=== PATIENT | male | born 1960 | race Two or more races ===

== ENCOUNTER 2024-11-10 12:06 | Inpatient (IN) | payer MEDICARE, OTHER ==
[~2024-11-10] VITALS: Ht 162.6 cm; Wt 81.4 kg
--- NOTE | 2024-11-10 13:15 | ED.PDOC ---
History of Present Illness HPI Comments This is a 64-year-old male who comes in with chief complaint of right flank pain secondary to shingles. The patient states that he was diagnosed with shingles a few weeks ago. The patient states that he was given medications for the pain and the shingles. The patient states that after taking Valtrex his body started shaking significantly. At this time he states that the rash is gone now but the patient was having increased amount of pain. There has been no nausea, vomiting or diarrhea. Chief Complaint: Rash Time Seen by MD: 12:51 Reviewed Notes: Nurses Notes, Medications, Allergies (NKDA) Allergies: Coded Allergies: NO KNOWN ALLERGIES (Unverified , 11/10/24) Information Source: Patient Mode of Arrival: Ambulatory Severity: Moderate Timing: Days Duration: Since onset Prehospital treatment: None Location: Right flank pain with no sign of significant rash Past Medical History PAST MEDICAL HISTORY: CKF, CVA, DM, HTN Surgical History (Other): Left arm fistula Family History Family History: Family hx of DM Social History Smoker: Non-Smoker Alcohol: Denies ETOH Use Drugs: Denies Drug Use Lives In: Home Constitutional: denies: chills, diaphoresis, fatigue, fever, malaise, sweats, weakness, others EENTM: denies: blurred vision, double vision, ear bleeding, ear discharge, ear drainage, ear pain, ear ringing, eye pain, eye redness, hearing loss, mouth pain, mouth swelling, nasal discharge, nose bleeding, nose congestion, nose pain, photophobia, tearing, throat pain, throat swelling, voice changes, others Respiratory: denies: cough, hemoptysis, orthopnea, SOB at rest, shortness of breath, SOB with excertion, stridor, wheezing, others Cardiovascular: denies: chest pain, dizzy spells, diaphoresis, Dyspnea on exertion, edema, irregular heart beat, left arm pain, lightheadedness, palpitations, PND, syncope, others Gastrointestinal: denies: abdomen distended, abdominal pain, blood streaked bowels, constipated, diarrhea, dysphagia, difficulty swallowing, hematemesis, melena, nausea, poor appetite, poor fluid intake, rectal bleeding, rectal pain, vomiting, others Genitourinary: denies: burning, dysuria, flank pain, frequency, hematuria, incontinence, penile discharge, penile sore, pain, testicle pain, testicle swelling, urgency, others Neurological: denies: dizziness, fainting, headache, left sided numbness, left sided weakness, numbness, paresthesia, pre-existing deficit, right sided numbness, right sided weakness, seizure, speech problems, tingling, tremors, weakness, others Musculoskeletal: reports: others (Left arm with a fistula in place); denies: back pain, gout, joint pain, joint swelling, muscle pain, muscle stiffness, neck pain Integumetry: reports: others (There is some mild redness to the right flank area); denies: bruises, change in color, change in hair/nails, dryness, laceration, lesions, lumps, rash, wounds Allergic/Immunocompromised: denies: Difficulty Healing, Frequent Infections, Hives, Itching, others Hematologic/Lymphatic: denies: anemia, blood clots, easy bleeding, easy bruising, swollen glands, others Endocrine: denies: excessive hunger, excessive sweating, excessive thirst, excessive urination, flushing, intolerance to cold, intolerance to heat, unexplained weight gain, unexplained weight loss, others Psychiatric: denies: anxiety, bipolar disorder, depression, hopeless, panic disorder, schizophrenia, sleepless, suicidal, others Physical Exam General Appearance: Mild Distress HEENT: Normal ENT Inspection, Pharynx Normal, TMs Normal Neck: Full Range of Motion, Non-Tender, Normal, Normal Inspection Respiratory: Chest Non-Tender, Lungs Clear, No Accessory Muscle Use, No Respiratory Distress, Normal Breath Sounds Cardiovascular: No Edema, No JVD, No Murmur, No Gallop, Normal Peripheral Pu lses, Regular Rate/Rhythm Breast Exam: Deferred Gastrointestinal: No Organomegaly, Non Tender, No Pulsatile Mass, Normal Bowel Sounds, Soft Genitalia: Deferred Pelvic: Deferred Rectal: Deferred Extremities: No calf tenderness, Normal capillary refill, No pedal edema, Other (Fistula to the left upper extremity without any redness or tenderness) Musculoskeletal : Apperance: Normal Neurologic: Alert, 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 Was a procedure done?: No Differential Dx Considerations may include: Shingles, intractable pain X-Ray, Labs, Meds, VS Vital Signs Date Time Temp Pulse Resp B/P (MAP) Pulse Ox O2 Delivery O2 Flow Rate FiO2 11/10/24 12:40 98.7 104 20 220/90 (133) 96 98.7 At this time, the patient was being discharged The patient will follow up with the primary care doctor The patient was given a prescription of Normanna The patient was somewhat hypertensive so was given clonidine The patient will return to the emergency department's the condition worsens. Time of 1ST Reevaluation: 13:13 Reevaluation 1ST: Improved Patient Education/Counseling: Diagnosis, Treatment, Prognosis, Need For Follow Up Family Education/Counseling: No Family Present Departure 1 Departure Time of Disposition: 13:14 Impression: Primary Impression: Shingles Qualified Codes: B02.9 - Zoster without complications Additional Impressions: Total body pain Hypertensive urgency Disposition: 01 HOME / SELF CARE / HOMELESS Condition: Fair Discharged With: Self Critical Care Note Critical Care Time?: No Stability Stability form required: No Heart Score Heart Score: Heart Score Response (Comments) Value History N/A 0 EKG N/A 0 Age N/A 0 Risk Factors N/A 0 Troponin N/A 0 Total 0 ROSARIO GOOD MD Nov 10, 2024 13:15
[2024-11-10] MEDS: cloNIDine HCL 0.1 MG TAB PO ONE (13:19)
[2024-11-10] MEDS: HYDROcodone-ACET 5/325MG TAB PO ONE (13:19)
[2024-11-10 16:09] VITALS: RESP 18; O2SAT 98
[2024-11-10] MEDS: hydrALAZINE HCL 20 MG/ML VL IV ONE (16:25)
[2024-11-10 16:40] LABS: Basophils # (auto) 0.1 10 ^3/uL (0-0.2); Basophils % (auto) 0.9 % (0.0-2.0); Eosinophils # (auto) 0.1 10 ^3/uL (0-0.8); Eosinophils % (auto) 0.9 % (0.0-7.0); Hematocrit 34.4 % (41.0-53.0); Hemoglobin 11.4 g/dL (13.5-17.5); Lymphocytes # (auto) 1.4 10 ^3/uL (0.4-5.4); Lymphocytes % (auto) 19.7 % (10.0-50.0); Mean Corpuscular Hemoglobin 29.9 pg (28.0-32.0); Mean Corpuscular Hgb Conc. 33.3 g/dL (32.0-36.0); Mean Corpuscular Volume 89.8 fL (80.0-100.0); Monocytes # (auto) 0.5 10 ^3/uL (0-1.3); Monocytes % (auto) 6.5 % (0.0-12.0); Neutrophils # (auto) 5.2 10 ^3/uL (1.6-8.6); Nucleated Red Blood Cells % 0.1 %; Platelet Count (auto) 322 10^3/uL (140-450); Red Blood Cells 3.83 10^6/uL (4.5-5.90); Red Cell Distribution Width 16.1 % (11.8-14.3); White Blood Cell 7.2 10^3/uL (4.4-10.8)
[2024-11-10 16:55] LABS: Potassium 4.8 mmol/L (3.5-5.1)
[2024-11-10 16:56] LABS: Anion Gap 12 (5-15); Calcium 9.3 mg/dL (8.7-10.4); Carbon Dioxide 29 mmol/L (20-31)
--- NOTE | 2024-11-10 16:58 | DVHHP2 ---
History of Present Illness Reason for Visit: Right flank pain History of Present Illness 64-year-old male past medical history CKD on dialysis Saturdays with Dr. Sierra at [facility] had dialysis today, CVA, diabetes, hypertension, left arm fistula chief complaint she was recently he knows with shingles three weeks ago. It appears he was prescribed gabapentin but he has not started the medication. He also had acyclovir which he had a bad reaction to. Patient states despite this he has been having severe right flank pain that radiates to his hip. He states the pain was so severe so he came to the ED for evaluation he did get dialysis today and he has a full session of the dialysis but he has not taken his home blood pressure meds. Was found to have a blood pressure 224/112. Patient denies any fever no chest pain no shortness with the breath he denies any drainage coming from his rash wounds on his hip. States the rash is improving but he just has a numbness and tingling pain. Evaluating patient's labs and imaging see was unremarkable he was given hydralazine clonidine and Todd in the ED. we will admit for hypertension urgency and also pain management Past Medical History CKD on dialysis Saturdays had session today, CVA, diabetes, hypertension, left arm fistula Past Surgical History Left arm fistula Family History Reviewed, non-contributory to the management of this case. Past Social History The patient lives at home, denies smoking, alcohol or illicit drugs abuse. Review of Systems Constitutional: No: Fever, Chills, Sweats, Weakness, Malaise, Other Eyes: No: Pain, Vision change, Conjunctivae inflammation, Eyelid inflammation, Other, Redness ENT: No: Ear pain, Ear discharge, Nose pain, Nose discharge, Nose congestion, Mouth pain, Mouth swelling, Throat pain, Throat swelling, Other Respiratory: No: Cough, Dry, Shortness of breath, SOB with excertion, Wheezing, Hemoptysis, Pleuritic Pain, Sputum, Wheezing, Other Cardiovascular: No: Chest Pain, Palpitations, Orthopnea, Paroxysmal Noc. Dyspnea, Edema, Lt Headedness, Other Gastrointestinal: No: Nausea, Vomiting, Abdominal Pain, Diarrhea, Constipation, Melena, Hematochezia, Other Genitourinary: No Dysuria, No Frequency, No Incontinence, No Hematuria, No Retention, No Other Musculoskeletal: No: other, neck pain, shoulder pain, arm pain, back pain, hand pain, leg pain, foot pain Skin: Rash, Lesions, Other (Pain); No: Jaundice, Bruising Neurological: No: Weakness, Numbness, Incoordination, Change in speech, Confusion, Seizures, Other Allergies: Coded Allergies: NO KNOWN ALLERGIES (Unverified , 11/10/24) Exam Vital Signs Vital Signs Date Time Temp Pulse Resp B/P (MAP) Pulse Ox O2 Delivery O2 Flow Rate FiO2 11/10/24 16:25 224/112 11/10/24 16:11 98.1 16 82 96 98.1 11/10/24 16:09 Room Air* 0 21 General Appearance: Alert, Oriented X3, Cooperative, No acute distress HEENT: Atraumatic, PERRLA, EOMI, Mucous membr. moist/pink Respiratory: Clear to auscultation, Normal air movement Cardiovascular: Regular rate, Normal S1, Normal S2, No murmurs Abdominal: Normal bowel sounds, Soft, No tenderness, No hepatospenomegaly, No masses Extremities: No clubbing, No cyanosis, No edema, Normal pulses, No tenderness/swelling Skin: No breakdown, No significant lesion (right Hip rash radiating to upper thighs scabbed over no erythema no drainage compartments soft neurovascular in tact no necrosis) Neuro: Normal gait, Normal speech, Strength at 5/5 X4 ext, Normal tone, Sensation intact, Cranial nerves 3-12 NL Psych/Mental Status: Mental status NL, Mood NL Labs/Xrays I reviewed labs, imaging CT scan abdomen pelvis, EKG and all diagnostic studies on this patient from ED records and the medical chart Labs Test 11/10/24 16:27 Range/Units White Blood Count 7.2 4.4-10.8 10^3/uL Red Blood Count 3.83 L 4.5-5.90 10^6/uL Hemoglobin 11.4 L 13.5-17.5 g/dL Hematocrit 34.4 L 41.0-53.0 % Mean Corpuscular Volume 89.8 80.0-100.0 fL Mean Corpuscular Hemoglobin 29.9 28.0-32.0 pg Mean Corpuscular Hemoglobin Concent 33.3 32.0-36.0 g/dL Red Cell Distribution Width 16.1 H 11.8-14.3 % Platelet Count 322 140-450 10^3/uL Mean Platelet Volume 7.3 6.9-10.8 fL Neutrophils (%) (Auto) 72.0 37.0-80.0 % Lymphocytes (%) (Auto) 19.7 10.0-50.0 % Monocytes (%) (Auto) 6.5 0.0-12.0 % Eosinophils (%) (Auto) 0.9 0.0-7.0 % Basophils (%) (Auto) 0.9 0.0-2.0 % Neutrophils # (Auto) 5.2 1.6-8.6 10 ^3/uL Lymphocytes # (Auto) 1.4 0.4-5.4 10 ^3/uL Monocytes # (Auto) 0.5 0-1.3 10 ^3/uL Eosinophils # (Auto) 0.1 0-0.8 10 ^3/uL Basophils # (Auto) 0.1 0-0.2 10 ^3/uL Nucleated Red Blood Cells 0.1 % Assessment/Plan Assessment/Plan acute hypertension emergency likely from missed dose versus increased pain ordered hydralazine prn cont home medication we will take home dose Acute intractable right flank pain likely from shingles ordered morphine as needed for pain ordered gabapentin tid ordered tramadol bid ordered lidocaine cream prn chronic problems ckd on HD does have davita had full hd today, goes tujason, thurs sat cva dm htn uncontrolled left arm fistula fen/ppx diet hl scd no gi ppx since no hx of gerds or gi bleed plan admit to tele pressure management Plan discussed with: Patient, Spouse Date of Service: Nov 10, 2024 Billing Provider: BELKIS WEST DNP Common Visit Codes: [id number] INP/OBS CARE (HIGH) BELKIS WEST DNP Nov 10, 2024 16:58
[2024-11-10 17:01] LABS: BUN/Creatinine Ratio 4.7 (10.0-20.0)
[2024-11-10 17:03] LABS: Blood Urea Nitrogen 33 mg/dL (9-23); Chloride 93 mmol/L (98-107); Glucose 185 mg/dL (74-106); Sodium 134 mmol/L (136-145)
[2024-11-10] MEDS ORDERED: DOCUSATE SOD 100 MG CAP PO PRN (18:30)
[2024-11-10] MEDS ORDERED: MORPHINE SULFATE INJ 2 MG/ml SYRG IV PRN (18:30)
[2024-11-10] MEDS ORDERED: ONDANSETRON HCL 4 MG/2 ML VIAL IV PRN (18:30)
[2024-11-10] MEDS ORDERED: NITROGLYCERIN 0.4 MG SL TAB SL PRN (18:30)
[2024-11-10] MEDS ORDERED: LIDOCAINE HCL 5 % TOP OINT 35 GM TOP PRN (18:30)
[2024-11-10] MEDS: hydrALAZINE HCL 20 MG/ML VL IV PRN (21:59)
[2024-11-10] MEDS: GABAPENTIN 100 MG CAP PO SCH (22:45)
[2024-11-11] MEDS ORDERED: CLON0.1T PO (04:22)
[2024-11-11] MEDS ORDERED: GLIM4TAB42 PO (04:22)
[2024-11-11] MEDS ORDERED: NIFE1TAB36 PO (04:22)
[2024-11-11] MEDS ORDERED: VALA500T33 PO (04:22)
[2024-11-11] MEDS ORDERED: LOSA-535 PO (04:22)
[2024-11-11 05:12] LABS: Basophils # (auto) 0.1 10 ^3/uL (0-0.2); Basophils % (auto) 0.9 % (0.0-2.0); Eosinophils # (auto) 0 10 ^3/uL (0-0.8); Eosinophils % (auto) 0.6 % (0.0-7.0); Hematocrit 30.7 % (41.0-53.0); Hemoglobin 10.8 g/dL (13.5-17.5); Lymphocytes # (auto) 1.8 10 ^3/uL (0.4-5.4); Mean Corpuscular Hemoglobin 30.9 pg (28.0-32.0); Mean Corpuscular Hgb Conc. 35.1 g/dL (32.0-36.0); Monocytes # (auto) 0.6 10 ^3/uL (0-1.3); Monocytes % (auto) 8.2 % (0.0-12.0); Neutrophils # (auto) 5.1 10 ^3/uL (1.6-8.6); Neutrophils % (auto) 66.3 % (37.0-80.0); Nucleated Red Blood Cells % 0.2 %; Platelet Count (auto) 306 10^3/uL (140-450); Red Blood Cells 3.49 10^6/uL (4.5-5.90); Red Cell Distribution Width 16.5 % (11.8-14.3); White Blood Cell 7.7 10^3/uL (4.4-10.8)
[2024-11-11 05:22] LABS: Alanine Aminotransferase 11 U/L (7-40); Albumin 4.4 g/dL (3.2-4.8); Alkaline Phosphatase 66 U/L (46-116); Anion Gap 10 (5-15); BUN/Creatinine Ratio 5.2 (10.0-20.0); Calcium 8.9 mg/dL (8.7-10.4); Carbon Dioxide 29 mmol/L (20-31); Potassium 4.6 mmol/L (3.5-5.1); Total Protein 6.4 g/dL (5.7-8.2)
[2024-11-11 05:23] LABS: Bilirubin, Total 0.6 mg/dL (0.2-1.0)
[2024-11-11 05:25] VITALS: BP 179/72; PULSE 98; RESP 18; TEMP 98.3; O2SAT 95
[2024-11-11 05:36] VITALS: PULSE 94; RESP 18; O2SAT 98
[2024-11-11 05:42] LABS: Aspartate Aminotransferase < 8 U/L (13-40); Blood Urea Nitrogen 43 mg/dL (9-23); Chloride 96 mmol/L (98-107); Glucose 125 mg/dL (74-106); Sodium 135 mmol/L (136-145)
[2024-11-11 08:00] VITALS: PULSE 96
[2024-11-11 09:00] VITALS: BP 198/79; PULSE 94; RESP 18; TEMP 97.9; O2SAT 97
--- NOTE | 2024-11-11 12:46 | DVHDS2 ---
Discharge Summary Date of Admission Nov 10, 2024 at 18:30 Date of Discharge: Nov 11, 2024 Labs/Diagnostic Data: Laboratory Results Test 11/11/24 04:40 White Blood Count 7.7 10^3/uL (4.4-10.8) Red Blood Count 3.49 10^6/uL (4.5-5.90) Hemoglobin 10.8 g/dL (13.5-17.5) Hematocrit 30.7 % (41.0-53.0) Mean Corpuscular Volume 88.0 fL (80.0-100.0) Mean Corpuscular Hemoglobin 30.9 pg (28.0-32.0) Mean Corpuscular Hemoglobin Concent 35.1 g/dL (32.0-36.0) Red Cell Distribution Width 16.5 % (11.8-14.3) Platelet Count 306 10^3/uL (140-450) Mean Platelet Volume 7.2 fL (6.9-10.8) Neutrophils (%) (Auto) 66.3 % (37.0-80.0) Lymphocytes (%) (Auto) 24.0 % (10.0-50.0) Monocytes (%) (Auto) 8.2 % (0.0-12.0) Eosinophils (%) (Auto) 0.6 % (0.0-7.0) Basophils (%) (Auto) 0.9 % (0.0-2.0) Neutrophils # (Auto) 5.1 10 ^3/uL (1.6-8.6) Lymphocytes # (Auto) 1.8 10 ^3/uL (0.4-5.4) Monocytes # (Auto) 0.6 10 ^3/uL (0-1.3) Eosinophils # (Auto) 0 10 ^3/uL (0-0.8) Basophils # (Auto) 0.1 10 ^3/uL (0-0.2) Nucleated Red Blood Cells 0.2 % Sodium Level 135 mmol/L (136-145) Potassium Level 4.6 mmol/L (3.5-5.1) Chloride Level 96 mmol/L (98-107) Carbon Dioxide Level 29 mmol/L (20-31) Anion Gap 10 (5-15) Blood Urea Nitrogen 43 mg/dL (9-23) Creatinine 8.29 mg/dL (0.700-1.30) Glomerular Filtration Rate Calc 7 mL/min (>90) BUN/Creatinine Ratio 5.2 (10.0-20.0) Serum Glucose 125 mg/dL (74-106) Calcium Level 8.9 mg/dL (8.7-10.4) Total Bilirubin 0.6 mg/dL (0.2-1.0) Aspartate Amino Transferase (AST) < 8 U/L (13-40) Alanine Aminotransferase (ALT) 11 U/L (7-40) Alkaline Phosphatase 66 U/L (46-116) Total Protein 6.4 g/dL (5.7-8.2) Albumin 4.4 g/dL (3.2-4.8) Other Laboratory Tests 11/11/24 04:40 Brief Hx & Hospital Course: Final diagnoses: Post herpetic neuralgia Uncontrolled hypertension End-stage renal disease on hemodialysis 64-year-old male who had herpes zoster 3 weeks ago comes with the pain in the right flank area He is still has a rash but it is fading away and it is becoming dry He was prescribed Neurontin 100 mg t.i.d. few days ago but he has not started taking it yet On admission his blood pressure was elevated and therefore he was admitted overnight and was given IV hydralazine Blood pressure this morning was 198/79 He has not received his home medications We will reorder his losartan 100 mg daily and nifedipine 30 mg now and then he can be discharged home Continue Neurontin 100 mg 3 times a day and the rest of his home medications Follow up with dialysis tomorrow as scheduled Follow up with his primary care physician as soon as possible Condition at Discharge: Stable Final Diagnosis/Problems List Post herpetic neuralgia End-stage renal disease on hemodialysis Hypertension Discharge Disposition: Home SNF Discharge Will this Physician continue t: No Discharge Instruct/Medications Diet: Cardiac 2g Na,low cholest, Renal Activity: No Restrictions, As Tolerated Follow Up/Referral: Hemodialysis tomorrow PCP as soon as possible Medications: Resume the home medications Neurontin 100 mg t.i.d., patient has a prescription already Discharge Statement: "Patient was advised to return to the ER or call 911 if any headaches, dizziness, shortness of breath, chest pain, abdominal pain, bleeding, fevers, or worsening of medical condition. Patient was counseled about treatment plan, medications, possible side effects, patientverbalized understanding. All questions were answered to the best of my ability. This discharge took greater then 30 minutes in planning, reviewing documentation, counseling the patient, and discussing with other team members." ASSESSMENT ASSESSMENT Assessment Post herpetic neuralgia End-stage renal disease on hemodialysis Hypertension Date of Service: Nov 11, 2024 Billing Provider: LORIE BALLESTEROS MD Common Visit Codes: NOT BILLABLE LORIE BALLESTEROS MD Nov 11, 2024 12:46
[2024-11-11] MEDS: LOSARTAN POTASSIUM 50 MG TAB PO ONE (12:50)
[2024-11-11] MEDS: NIFEdipine ER 30 MG TAB PO ONE (12:51)
[2024-11-11 13:00] VITALS: BP 220/94; PULSE 93; RESP 18; TEMP 98.4; O2SAT 100
[2024-11-12] MEDS ORDERED: LOSARTAN POTASSIUM 50 MG TAB PO SCH (10:00)
== END 2024-11-11 15:30 | disposition home or self-care (01) | DRG 73 ==
LOC: ER 12:09 → OVERFLOW 18:30 → TELE-EAST 11-11 05:34
PROVIDERS: ADMIT Internal Medicine Geriatric Medicine; ATTEND Internal Medicine Geriatric Medicine
DX: B02.29 Other postherpetic nervous system involvement (principal); N18.6 End stage renal disease; I16.1 Hypertensive emergency; I12.0 Hypertensive chronic kidney disease with stage 5 chronic kidney disease or end stage renal disease; E11.22 Type 2 diabetes mellitus with diabetic chronic kidney disease; Z99.2 Dependence on renal dialysis; Z79.899 Other long term (current) drug therapy; Z86.73 Personal history of transient ischemic attack (TIA), and cerebral infarction without residual deficits; Z83.3 Family history of diabetes mellitus
CPT/HCPCS: 36415; 80048; 80053; 85025; 96374; G0378

== ENCOUNTER 2024-11-22 03:20 | Emergency (ER) | payer OTHER ==
[~2024-11-22] VITALS: Ht 162.6 cm; Wt 82.3 kg
[~2024-11-22 03:20] MED LIST: CLON0.1T PO; GLIM4TAB42 PO; LOSA-535 PO; NIFE1TAB36 PO; VALA500T33 PO
--- NOTE | 2024-11-22 03:39 | ED.PDOC ---
History of Present Illness HPI Comments 64-year-old male with PMHX HTN presents with a chief complaint of HTN. Patient states that he was checking his blood pressure at home "just because" and it was high in the 200s systolic. Patient reports that he then took 50mg of Hydralazine at home. Patients BP reading in triage was 224/94. Patient is asymptomatic at this time. Chief Complaint: High Blood Pressure Time Seen by MD: 03:32 Reviewed Notes: Medications, Allergies Allergies: Coded Allergies: NO KNOWN ALLERGIES (Unverified , 11/10/24) Home Meds Active Scripts Acyclovir (ZOVIRAX TABLET) 400 Mg Tb, 1 TAB PO TID for 10 Days, #30 TAB Prov:IDANIA SCHAEFFER MD 11/22/24 Reported Medications Valacyclovir Hcl (Valacyclovir Hcl) 500 Mg Tab, 500 MG PO DAILY for 5 Days, #5 TAB 11/11/24 Clonidine Hydrochloride (Clonidine Hcl) 0.1 Mg Tab, 0.1 MG PO BID, MG 11/11/24 Losartan Potassium (Losartan Potassium) 100 Mg Tab, 100 MG PO DAILY for 30 Days, MG 11/11/24 Nifedipine (Nifedipine ER) 30 Mg Tab, 30 MG PO DAILY, TAB 11/11/24 Glimepiride (Glimepiride) 4 Mg Tab, 4 MG PO, MG 11/11/24 Information Source: Patient Mode of Arrival: Ambulatory Severity: Moderate Timing: Hours Duration: Since onset Prehospital treatment: None Past Medical History PAST MEDICAL HISTORY: CKF, CVA, DM, HTN Family History Family History: Family hx of DM Social History Smoker: Non-Smoker Alcohol: Denies ETOH Use Drugs: Denies Drug Use Lives In: Home Constitutional: denies: chills, diaphoresis, fatigue, fever, malaise, sweats, weakness, others EENTM: denies: blurred vision, double vision, ear bleeding, ear discharge, ear drainage, ear pain, ear ringing, eye pain, eye redness, hearing loss, mouth pain, mouth swelling, nasal discharge, nose bleeding, nose congestion, nose pain, photophobia, tearing, throat pain, throat swelling, voice changes, others Respiratory: denies: cough, hemoptysis, orthopnea, SOB at rest, shortness of breath, SOB with excertion, stridor, wheezing, others Cardiovascular: reports: others (hypertensive); denies: chest pain, dizzy spells, diaphoresis, Dyspnea on exertion, edema, irregular heart beat, left arm pain, lightheadedness, palpitations, PND, syncope Gastrointestinal: denies: abdomen distended, abdominal pain, blood streaked bowels, constipated, diarrhea, dysphagia, difficulty swallowing, hematemesis, melena, nausea, poor appetite, poor fluid intake, rectal bleeding, rectal pain, vomiting, others Genitourinary: denies: burning, dysuria, flank pain, frequency, hematuria, incontinence, penile discharge, penile sore, pain, testicle pain, testicle swelling, urgency, others Neurological: denies: dizziness, fainting, headache, left sided numbness, left sided weakness, numbness, paresthesia, pre-existing deficit, right sided numbness, right sided weakness, seizure, speech problems, tingling, tremors, weakness, others Musculoskeletal: denies: back pain, gout, joint pain, joint swelling, muscle pain, muscle stiffness, neck pain, others Integumetry: denies: bruises, change in color, change in hair/nails, dryness, laceration, lesions, lumps, rash, wounds, others Allergic/Immunocompromised: denies: Difficulty Healing, Frequent Infections, Hives, Itching, others Hematologic/Lymphatic: denies: anemia, blood clots, easy bleeding, easy bruising, swollen glands, others Endocrine: denies: excessive hunger, excessive sweating, excessive thirst, excessive urination, flushing, intolerance to cold, intolerance to heat, unexplained weight gain, unexplained weight loss, others Psychiatric: denies: anxiety, bipolar disorder, depression, hopeless, panic disorder, schizophrenia, sleepless, suicidal, others All Other Systems: Reviewed and Negative Physical Exam General Appearance: Mild Distress, Normal HEENT: Normal ENT Inspection, Pharynx Normal, TMs Normal Neck: Full Range of Motion, Non-Tender, Normal, Normal Inspection Respiratory: Chest Non-Tender, Lungs Clear, No Accessory Muscle Use, No Respiratory Distress, Normal Breath Sounds Cardiovascular: No Edema, No JVD, No Murmur, No Gallop, Normal Peripheral Pulses, Regular Rate/Rhythm Breast Exam: Deferred Gastrointestinal: No Organomegaly, Non Tender, No Pulsatile Mass, Normal Bowel Sounds, Soft Genitalia: Deferred Pelvic: Deferred Rectal: Deferred Extremities: No calf tenderness, Normal capillary refill, Normal inspection, Normal range of motion, Non-tender, No pedal edema Musculoskeletal : Apperance: Normal 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 Was a procedure done?: No Differential Dx Considerations may include: Differential diagnosis includes but not limited to: angina, myocardial infarction, ischemic stroke, intracranial hemorrhage, acute renal injury, end- organ failure and others X-Ray, Labs, Meds, VS Vital Signs Date Time Temp Pulse Resp B/P (MAP) Pulse Ox O2 Delivery O2 Flow Rate FiO2 11/22/24 05:38 168/76 (106) 11/22/24 05:23 175/76 (109) 11/22/24 04:36 179/73 (108) 11/22/24 04:29 100 20 97 Room Air* 0 21 11/22/24 04:11 218/92 11/22/24 03:45 98.1 95 26 211/84 (126) 95 98.1 11/22/24 03:35 95 11/22/24 03:31 98.9 102 20 224/94 (137) 98 98.9 Lab Test 11/22/24 03:47 Range/Units White Blood Count 6.7 4.4-10.8 10^3/uL Red Blood Count 3.40 L 4.5-5.90 10^6/uL Hemoglobin 10.5 L 13.5-17.5 g/dL Hematocrit 30.0 L 41.0-53.0 % Mean Corpuscular Volume 88.4 80.0-100.0 fL Mean Corpuscular Hemoglobin 31.0 28.0-32.0 pg Mean Corpuscular Hemoglobin Concent 35.1 32.0-36.0 g/dL Red Cell Distribution Width 15.6 H 11.8-14.3 % Platelet Count 267 140-450 10^3/uL Mean Platelet Volume 7.8 6.9-10.8 fL Neutrophils (%) (Auto) 64.9 37.0-80.0 % Lymphocytes (%) (Auto) 25.2 10.0-50.0 % Monocytes (%) (Auto) 6.7 0.0-12.0 % Eosinophils (%) (Auto) 1.7 0.0-7.0 % Basophils (%) (Auto) 1.5 0.0-2.0 % Neutrophils # (Auto) 4.4 1.6-8.6 10 ^3/uL Lymphocytes # (Auto) 1.7 0.4-5.4 10 ^3/uL Monocytes # (Auto) 0.4 0-1.3 10 ^3/uL Eosinophils # (Auto) 0.1 0-0.8 10 ^3/uL Basophils # (Auto) 0.1 0-0.2 10 ^3/uL Nucleated Red Blood Cells 0.0 % Sodium Level 134 L 136-145 mmol/L Potassium Level 4.7 3.5-5.1 mmol/L Chloride Level 92 L 98-107 mmol/L Carbon Dioxide Level 27 20-31 mmol/L Anion Gap 15 5-15 Blood Urea Nitrogen 46 H 9-23 mg/dL Creatinine 7.42 H 0.700-1.30 mg/dL Glomerular Filtration Rate Calc 8 >90 mL/min BUN/Creatinine Ratio 6.2 L 10.0-20.0 Serum Glucose 150 H 74-106 mg/dL Calcium Level 9.1 8.7-10.4 mg/dL Total Bilirubin 0.4 0.2-1.0 mg/dL Aspartate Amino Transferase (AST) 8 L 13-40 U/L Alanine Aminotransferase (ALT) 12 7-40 U/L Alkaline Phosphatase 76 46-116 U/L Total Protein 7.1 5.7-8.2 g/dL Albumin 4.8 3.2-4.8 g/dL Current Medications Medications (Trade) Dose Ordered Sig/[place] Route Start Time Stop Time Status Last Admin Hydralazine HCl (Apresoline Injection) 20 mg ONCE ONCE IV 11/22/24 03:45 11/22/24 03:46 DC 11/22/24 04:11 Time of 1ST Reevaluation: 04:02 Reevaluation 1ST: Unchanged Patient Education/Counseling: Diagnosis, Treatment, Prognosis Family Education/Counseling: No Family Present Departure 1 Departure Time of Disposition: 05:58 Impression: Primary Impression: End stage renal failure on dialysis Additional Impressions: Hypertensive urgency Shingles Disposition: 01 HOME / SELF CARE / HOMELESS Condition: Stable e-Prescriptions Acyclovir (ZOVIRAX TABLET) 400 Mg Tb 1 TAB PO TID for 10 Days, #30 TAB Prov: IDANIA SCHAEFFER MD 11/22/24 Discharged With: Self Critical Care Note Critical Care Time?: No Stability Stability form required: No Heart Score Heart Score: Heart Score Response (Comments) Value History N/A 0 EKG N/A 0 Age N/A 0 Risk Factors N/A 0 Troponin N/A 0 Total 0 I personally scribed for IDANIA SCHAEFFER MD ([email or web address]) on 11/22/24 at 03:39. Electronically submitted by Romain Tirado ([email or web address]). IDANIA SCHAEFFER MD Nov 22, 2024 03:39
[2024-11-22 04:02] LABS: Basophils # (auto) 0.1 10 ^3/uL (0-0.2); Basophils % (auto) 1.5 % (0.0-2.0); Eosinophils # (auto) 0.1 10 ^3/uL (0-0.8); Eosinophils % (auto) 1.7 % (0.0-7.0); Hemoglobin 10.5 g/dL (13.5-17.5); Lymphocytes # (auto) 1.7 10 ^3/uL (0.4-5.4); Lymphocytes % (auto) 25.2 % (10.0-50.0); Mean Corpuscular Hgb Conc. 35.1 g/dL (32.0-36.0); Mean Corpuscular Volume 88.4 fL (80.0-100.0); Monocytes # (auto) 0.4 10 ^3/uL (0-1.3); Monocytes % (auto) 6.7 % (0.0-12.0); Neutrophils # (auto) 4.4 10 ^3/uL (1.6-8.6); Neutrophils % (auto) 64.9 % (37.0-80.0); Platelet Count (auto) 267 10^3/uL (140-450); Red Cell Distribution Width 15.6 % (11.8-14.3); White Blood Cell 6.7 10^3/uL (4.4-10.8)
[2024-11-22] MEDS: hydrALAZINE HCL 20 MG/ML VL IV ONE (04:11)
[2024-11-22 04:14] LABS: Alanine Aminotransferase 12 U/L (7-40); Alkaline Phosphatase 76 U/L (46-116); Anion Gap 15 (5-15); BUN/Creatinine Ratio 6.2 (10.0-20.0); Bilirubin, Total 0.4 mg/dL (0.2-1.0); Calcium 9.1 mg/dL (8.7-10.4); Carbon Dioxide 27 mmol/L (20-31); Potassium 4.7 mmol/L (3.5-5.1); Total Protein 7.1 g/dL (5.7-8.2)
[2024-11-22 04:18] LABS: Albumin 4.8 g/dL (3.2-4.8); Aspartate Aminotransferase 8 U/L (13-40); Blood Urea Nitrogen 46 mg/dL (9-23); Chloride 92 mmol/L (98-107); Glucose 150 mg/dL (74-106); Sodium 134 mmol/L (136-145)
[2024-11-22 04:29] VITALS: PULSE 100; RESP 20; O2SAT 97
--- NOTE | 2024-11-22 05:00 | DVH ---
CHEST RADIOGRAPH Indication: dialysis patient High BP fluid overload Technique: Single frontal view of the chest was obtained COMPARISON: None FINDINGS: Lines and Tubes: None Lungs: Clear Pleura: No effusion. No pneumothorax. Cardiomediastinal contours: Unremarkable Bones: Unremarkable IMPRESSION: 1. No acute disease.
[2024-11-22] MEDS ORDERED: ACYC400T16 PO (05:46)
[2024-11-22 06:03] VITALS: BP 192/83; PULSE 100; RESP 20; TEMP 98; O2SAT 96
--- NOTE | 2024-11-22 06:09 | ECG ---
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
== END 2024-11-22 06:11 | disposition home or self-care (01) ==
LOC: ER 03:20
DX: I12.0 Hypertensive chronic kidney disease with stage 5 chronic kidney disease or end stage renal disease (principal); E11.22 Type 2 diabetes mellitus with diabetic chronic kidney disease; N18.6 End stage renal disease; B02.9 Zoster without complications; Z79.899 Other long term (current) drug therapy; Z99.2 Dependence on renal dialysis
CPT/HCPCS: 36415; 71045; 80053; 85025; 93005; 96374; 99285; J0360